=== PATIENT | female | born 1985 | race Caucasian/White ===

== ENCOUNTER 2017-09-09 09:18 | Day surgery (SDC) | payer MEDICAID ==
[2017-09-09] MEDS: Bupivacaine 0.5% 50 ML MDV ONE ×2 (10:26→11:36)
[2017-09-09] MEDS: Lidocaine 1% with EPINEPHrine 1:100,000 50 ML MDV ONE ×2 (10:27→11:36)
[2017-09-09] MEDS ORDERED: Lactated Ringers 1,000 ML IV SCH (10:30)
[2017-09-09] MEDS ORDERED: Propofol 200 MG/20 ML SDV ONE (11:08)
[2017-09-09] MEDS ORDERED: fentaNYL 100 MCG/2 ML SDV ONE (11:09)
[2017-09-09] MEDS ORDERED: Midazolam 1 MG/ML 2 ML SDV ONE (11:09)
--- NOTE | 2017-09-09 12:46 | OR ---
DATE OF PROCEDURE: 09/09/2017 PREOPERATIVE DIAGNOSIS: 5 cm left shoulder mass. POSTOPERATIVE DIAGNOSIS: 5 cm left shoulder mass consistent with a lipoma. PROCEDURE: Excision of 5 cm left shoulder mass. SURGEON: Joseph Galdamez MD. ANESTHESIA: IV anesthesia with monitored anesthesia care. INDICATION: This 32-year-old white female is here to have a mass excised from her left shoulder. This is in the subcutaneous tissue. It is on the posterior aspect of the shoulder. It measures about 5 cm in diameter. I counseled her for excision of this, and she gave her informed consent to proceed. DESCRIPTION OF PROCEDURE: The patient was placed prone on the operating room table. IV anesthesia was administered by the Anesthesia Service. Her upper back was prepped and draped in the usual sterile fashion. Time-out was held. Lidocaine 1% with epinephrine in a 50:50 mix with 0.5% Marcaine was infiltrated over the mass. An oblique incision was made over the mass, parallel to the long axis of the mass. This was carried deep and sharply to the mass. The mass was dissected free and easily removed from the incision. It was consistent with a lipoma. The incision was irrigated and dried. Hemostasis was obtained with electrocautery. The subcutaneous tissue was closed with 3-0 Vicryl suture and 4-0 Vicryl using a subcuticular stitch was placed to approximate the skin. Dermabond was applied. The patient tolerated the procedure well and was brought from the operating room in a good condition. Joseph Galdamez MD /[id number] [facility]
[2017-09-09 13:05] VITALS: BP 128/73
== END 2017-09-09 13:00 | disposition home or self-care (01) ==
LOC: JP.SDS 09:18
PROVIDERS: ATTEND Surgery
DX: D17.22 Benign lipomatous neoplasm of skin and subcutaneous tissue of left arm (principal); K21.9 Gastro-esophageal reflux disease without esophagitis
CPT/HCPCS: 23071; J2250; J2704; J3010; J7120; 88304